=== PATIENT | female | born 1985 ===

== ENCOUNTER 2018-10-12 14:46 | Inpatient (IN) ==
[2018-10-12] MEDS ORDERED: LACTATED RINGERS 500 ML IV PRN (15:19)
[2018-10-12] MEDS ORDERED: BUTORPHANOL 1 MG/ML VIAL IV PRN (15:19)
[2018-10-12] MEDS ORDERED: MEPERIDINE 50 MG/1 ML VIAL IV PRN (15:19)
[2018-10-12] MEDS ORDERED: ONDANSETRON 4 MG/2 ML VIAL IV PRN (15:19)
[2018-10-12 15:38] LABS: Basophils % 0.1 % (0.0-0.8); Eosinophils % 0.4 % (0.00-10.9); Hematocrit 28.2 VOL% (35.7-47.0); Hemoglobin 8.7 GM/DL (12.0-16.0); Immature Granulocytes % 0.3 %; Immature Granulocytes Absolute 0.02 #; Lymphocytes # 1.6 10*3/uL (1.4-4.0); Lymphocytes % 21.3 % (21.3-54.2); Mean Corpuscular HGB Conc 30.9 GM/DL (32-36); Mean Corpuscular Hemoglobin 26 PG (27-34); Mean Corpuscular Volume 82.9 FL (87-102); Mean Platelet Volume 13.7 FL (9.6-12.0); Monocytes # 0.3 10*3/uL (0.11-0.8); Monocytes % 4.3 % (1.7-12.7); Neutrophils # 5.5 10*3/uL (1.4-7.4); Neutrophils % 73.6 % (38.7-73.9); Platelet Count 114 T/CUMM (130-400); Red Cell Distribution Width 15.4 % (9.3-17.3); White Blood Count 7.5 T/CUMM (4-12)
[2018-10-12 16:06] LABS: Alanine Aminotransferase < 9 U/L (13-56); Albumin 2.3 G/DL (3.4-5.0); Alkaline Phosphatase 241 U/L (45-117); Aspartate Amino Transferase 13 U/L (0-37); Blood Urea Nitrogen 7 MG/DL (7-18); Calcium 8.3 MG/DL (8.5-10.1); Glucose 79 MG/DL (74-106); Potassium 3.5 MMOL/L (3.5-5.1); Sodium 136 MMOL/L (136-145); Total Protein 7.4 G/DL (6.4-8.3); Uric Acid 4.4 MG/DL (2.6-6.0)
[2018-10-12] MEDS: LACTATED RINGERS 1,000 ML IV SCH (16:20)
[2018-10-12] MEDS ORDERED: DINOPROSTONE VAG GEL 10 MG SYRINGE VAG ONE (17:00)
[2018-10-12] MEDS ORDERED: CITRIC ACID/SODIUM CITRATE 30 ML UDCUP PO ONE (18:51)
[2018-10-12] MEDS ORDERED: FAMOTIDINE 20 MG/2 ML VIAL IV ONE (18:51)
[2018-10-12] MEDS ORDERED: NALOXONE 0.4 MG/ML VIAL IV PRN (18:51)
[2018-10-12] MEDS ORDERED: hydrOXYzine HCL 25 MG/1 ML VIAL IM PRN (18:51)
[2018-10-12] MEDS ORDERED: ePHEDrine 50 MG/ML AMP IV PRN (18:51)
[2018-10-12] MEDS ORDERED: diphenhydrAMINE 50 MG/1 ML VIAL IV PRN ×2 (18:51)
[2018-10-12] MEDS ORDERED: LACTATED RINGERS 1,000 ML IV ONE (18:51)
[2018-10-12] MEDS: fentaNYL 2 MCG/ROPIV 0.2% EPID 100 ML EPIDURAL SCH (22:00)
[2018-10-12 22:20] LABS: Apearance,Urine CLEAR (Clear); Bilirubin,Urine Negative (Negative); Blood, Urine Negative (Negative); Glucose,Urine (UA) Negative (Negative); Ketones,Urine Negative (Negative); Nitrite,Urine Negative (Negative); Protein,Urine Negative; RBC,Urine <1 /HPF (0-4); Squamous Epithelial Cell,Urine Occasional /HPF (0-10); Urine Color Yellow (Yellow); Urine Specific Gravity 1.006 (1.001-1.035); WBC,Urine <1 /HPF (0-6)
[2018-10-13] MEDS: OXYTOCIN/LR 20 UNIT/1,000 ML BAG IV SCH ×2 (02:15→17:34)
[2018-10-13] MEDS: LACTATED RINGERS 1,000 ML IV SCH (04:02)
[2018-10-13] MEDS: fentaNYL 2 MCG/ROPIV 0.2% EPID 100 ML EPIDURAL SCH (05:48)
[2018-10-13] MEDS ORDERED: miSOPROStol 200 MCG TABLET ONE (11:06)
[2018-10-13] MEDS ORDERED: METHYLERGONOVINE 0.2 MG/1 ML AMP ONE (11:07)
[2018-10-13] MEDS ORDERED: CARBOPROST TROMETHAMINE 250 MCG/ML AMP IM ONE (11:07)
[2018-10-13] MEDS ORDERED: OXYTOCIN/LR 30 UNIT/1,000 ML BAG IV ONE (11:10)
[2018-10-13 11:59] LABS: Cord Arterial Blood HCO3 17.8 MMOL/L
[2018-10-13 12:02] LABS: Cord Venous Blood HCO3 21.2 MMOL/L; Cord Venous Blood PCO2 41.7 MMHG; Cord Venous Blood PO2 33.8
[2018-10-13] MEDS ORDERED: oxyCODONE/ACETAMINOPHEN 5-325 MG TABLET PO PRN (15:15)
[2018-10-13] MEDS: IBUPROFEN 800 MG TABLET PO PRN (15:22)
[2018-10-13] MEDS ORDERED: FERROUS SULFATE 325 MG TABLET PO SCH (21:00)
[2018-10-13] MEDS: DOCUSATE SODIUM 100 MG CAPSULE PO SCH (21:21)
[2018-10-14 06:34] LABS: Basophils % 0.3 % (0.0-0.8); Eosinophils # 0.1 10*3/uL (0.0-0.87); Eosinophils % 1.3 % (0.00-10.9); Hematocrit 23.4 VOL% (35.7-47.0); Hemoglobin 7.4 GM/DL (12.0-16.0); Immature Granulocytes % 0.4 %; Immature Granulocytes Absolute 0.03 #; Lymphocytes # 2.2 10*3/uL (1.4-4.0); Lymphocytes % 26.9 % (21.3-54.2); Mean Corpuscular HGB Conc 31.6 GM/DL (32-36); Mean Corpuscular Hemoglobin 26 PG (27-34); Mean Corpuscular Volume 81.8 FL (87-102); Mean Platelet Volume 14.1 FL (9.6-12.0); Monocytes # 0.4 10*3/uL (0.11-0.8); Monocytes % 4.4 % (1.7-12.7); Neutrophils # 5.3 10*3/uL (1.4-7.4); Neutrophils % 66.7 % (38.7-73.9); Platelet Count 103 T/CUMM (130-400); Red Blood Count 2.86 MC/CUMM (3.8-5.5); Red Cell Distribution Width 15.5 % (9.3-17.3)
[2018-10-14] MEDS: DOCUSATE SODIUM 100 MG CAPSULE PO SCH ×2 (08:54→20:25)
[2018-10-14] MEDS: FERROUS SULFATE 325 MG TABLET PO SCH ×3 (08:54→20:25)
[2018-10-14] MEDS ORDERED: SODIUM CHLORIDE 0.9% 1,000 ML IV PRN (09:25)
[2018-10-14 18:28] LABS: Hematocrit 30.4 VOL% (35.7-47.0); Hemoglobin 9.6 GM/DL (12.0-16.0)
[2018-10-15] MEDS: IBUPROFEN 800 MG TABLET PO PRN (05:19)
[2018-10-15] MEDS: DOCUSATE SODIUM 100 MG CAPSULE PO SCH (09:48)
[2018-10-15] MEDS: FERROUS SULFATE 325 MG TABLET PO SCH (09:49)
[2018-10-15 11:38] VITALS: BP 132/70
== END 2018-10-15 13:35 | disposition home or self-care (01) | DRG 560 ==
LOC: N.LDOUT 14:46 → N.LD 14:48 → N.OB 10-13 14:19
PROVIDERS: ADMIT Obstetrics & Gynecology; ATTEND Obstetrics & Gynecology